=== PATIENT | male | born 1935 | race Caucasian/White ===

== ENCOUNTER 2018-02-02 22:18 | Emergency (ER) | payer MEDICARE, BC ==
[2018-02-02] MEDS ORDERED: Sodium Chloride 0.9% 10 ML Syringe FLUSH PRN ×2 (22:33→23:09)
[2018-02-02] MEDS ORDERED: Metoprolol Tartrate 5 MG/5 ML SDV IVPUSH ONE (22:33)
[2018-02-02] MEDS ORDERED: Aspirin 81 MG Tab.Chew CHEW ONE (22:33)
[2018-02-02] MEDS ORDERED: Ticagrelor 90 MG Tab PO ONE (22:33)
[2018-02-02] MEDS ORDERED: Famotidine 20 MG/2 ML SDV IVPUSH ONE (22:33)
--- NOTE | 2018-02-02 22:33 | EDM.PDOC ---
ED HPI GENERAL MEDICAL PROBLEM - General Chief Complaint: Chest Pain Stated Complaint: low BP clammy awoke chest tightness Time Seen by Provider: 02/02/18 22:20 Source of Information: Reports: Patient, Family (), Old Records ([facility] chart/EMR) History Limitations: Reports: No Limitations - History of Present Illness INITIAL COMMENTS - FREE TEXT/NARRATIVE: The patient was brought to the emergency room via private automobile by his for evaluation of 4/10 retrosternal chest pressure and tightness with symptoms starting while he was trying to fall asleep this evening at about 21: 00 hours. Symptoms were associated with some dizziness, heart flutter, diaphoresis and hypotension with a blood pressure of only 62/50 by their home blood pressure monitor. No medications were taken prior to arrival to our facility, including sublingual nitroglycerin, etc. The patient denies any orthopnea, diaphoresis, recent decreased exercise tolerance, or any other anginal-type symptoms, although patient is not very active secondary to his arthritis. No recent history of abdominal pain, heartburn, nausea, diarrhea, melena, gross hematochezia, or any food intolerance, including fatty foods, etc. with normal bowel movement earlier this morning. The patient also denies any recent fever, cough, wheezing, dyspnea, etc.. No history of recent headaches , visual changes, diplopia, change in mental status, or other change in neurological status. Last oral intake was at 19:30 hours this evening. He denies any medication noncompliance, recent fall or injury, recent surgery, etc.. Onset: Today, Gradual Onset Date: 02/02/18 Onset Time: 21:00 Duration: Constant Location: Reports: Chest. Denies: Head, Face, Neck, Abdomen, Back, Pelvis, Upper Extremity, Left, Upper Extremity, Right, Radiates to Quality: Reports: Pressure, Same as Previous Episode Severity: Mild Improves with: Reports: None Worsens with: Reports: None Context: Reports: Other (as above) Associated Symptoms: Reports: Chest Pain, Diaphoresis. 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5 mg PO QAM 12/01/13 [History] Multivitamin/Iron/Folic Acid [Multi-Day Plus Iron Tablet] 1 each PO QAM [History] Rosuvastatin [Crestor] 10 mg PO BEDTIME 12/01/13 [History] Carvedilol [Coreg] 12.5 mg PO BID 01/04/15 [History] Cholecalciferol (Vitamin D3) [Vitamin D3] 1,000 unit PO BEDTIME 01/04/15 [ History] Ferrous Sulfate 325 mg PO QAM 01/04/15 [History] Gabapentin [Neurontin] 100 mg PO QAM 09/13/17 [History] Gabapentin [Neurontin] 600 mg PO BEDTIME 09/13/17 [History] Past Medical History HEENT History: Reports: Cataract, Hard of Hearing, Impaired Vision, Other (See Below). Denies: Allergic Rhinitis, Glaucoma, Macular Degeneration, Retinal Detachment Other HEENT History: Patient wears glasses. 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 Cardiovascular History: Reports: Afib, Arrhythmia, CAD, Cardiomyopathy, Heart Murmur, High Cholesterol, Hypertension, MO, PTCA, PVD, Stents. Denies: Aneurysm , Blood Clots/VTE/DVT, Heart Failure, Pacemaker, Syncope Other Cardiovascular History: History of possible MO in 2016 with PTCA/stents as below. Mild cardiomyopathy and grade 1 diastolic dysfunction with decreased ejection fraction of 45-50% in 2014 by echocardiogram. Carotid occlusive disease requiring surgeries as below Respiratory History: Reports: COPD, Intubation, Previous, Pulmonary Fibrosis. Denies: Asthma, Intubation, Difficult, PE, Pneumothorax, Sleep Apnea, TB Gastrointestinal History: Reports: None. Denies: Bowel Obstruction, Celiac Disease, Cholelithiasis, Chronic Constipation, Chronic Diarrhea, Colon Polyp, Diverticulosis, Fecal Incontinence, Gastritis, GERD, GI Bleed, Hepatitis, Hiatal Hernia, Inflammatory Bowel Disease, Irritable Bowel Syndrome, Jaundice, Pancreatitis Genitourinary History: Reports: BPH. Denies: Acute Renal Failure, Chronic Renal Insuffiency, Renal Calculus, STD, Urinary Incontinence, UTI, Recurrent Musculoskeletal History: Reports: Arthritis, Back Pain, Chronic, Fibromyalgia, Neck Pain, Chronic, Osteoarthritis, Osteoporosis, RA, Other (See Below). Denies : Amputation, Fracture, Gout, SLE Other Musculoskeletal History: Lumbar stenosis, scoliosis, and degenerative joint disease. Bilateral coxarthrosis. Neurological History: Reports: Neuropathy, Peripheral. Denies: Cerebral Aneurysms, Concussion, CVA, Headaches, Chronic, Head Trauma, Migraines, MS, Neuropathy, Diabetic, Parkinson's, Seizure, TIA Psychiatric History: Reports: Addiction, Anxiety, Depression, Other (See Below) . Denies: Abuse, Victim of, ADD, ADHD, Psych Hospitalization(s), PTSD, Suicide Attempt, Suicidal Ideation Other Psychiatric History: alcohol and tobacco use as below Endocrine/Metabolic History: Reports: Osteopenia, Osteoporosis. Denies: Diabetes, Type I, Diabetes, Type II, Diabetes Mellitus, Type 3c, Hypothyroidism , IDDM, Multinodular Thyroid Hematologic History: Reports: Anemia, Iron Deficiency. Denies: B12 Deficiency, Blood Transfusion(s) Immunologic History: Reports: None. Denies: AIDS, HIV, SLE Oncologic (Cancer) History: Reports: None. Denies: Basal Cell Carcinoma, Cervix , Hodgkin's Lymphoma, Leukemia, Lymphoma, Malignant Melanoma, Non-Hodgkin's Lymphoma, Squamous Cell Carcinoma Dermatologic History: Reports: None. Denies: Eczema, Psoriasis - Infectious Disease History Infectious Disease History: Reports: None, Mumps. Denies: C-Difficile, Chicken Pox, Measles, Meningitis, Mononucleosis, MRSA, Pertussis (Whooping Cough), Rheumatic Fever, Rubella, Scarlet Fever, Shingles, TB, VRE - Past Surgical History Head Surgeries/Procedures: Reports: None HEENT Surgical History: Reports: Cataract Surgery, Oral Surgery, Other (See Below). Denies: Adenoidectomy, Eye Surgery, Laser Surgery, LASIK, Myringotomy w Tube(s), Naso-Sinus Surgery, Tonsillectomy Other HEENT Surgeries/Procedures: multiple teeth extractions with current complete upper dentures. Bilateral cataract surgery in 2016 Cardiovascular Surgical History: Reports: Carotid Endarterectomy, Coronary Artery Stent, Percutaneous Transluminal Angioplasty, Other (See Below). Denies : Coronary Artery Bypass, Pacer, Varicose Other Cardiovascular Surgeries/Procedures: left-sided carotid endarterectomy 2 in 2011 and 2012. PTCA/stent 2 in August 2016. Respiratory Surgical History: Reports: None. Denies: Thoracentesis GI Surgical History: Reports: Hernia, Inguinal, Other (See Below). Denies: Appendectomy, Cholecystectomy, Colonoscopy, EGD, Hernia, Abdominal, Hernia Repair/Other Other GI Surgeries/Procedures: right inguinal hernia repair in about 2007 Male Surgical History: Reports: Circumcision, Other (See Below). Denies: Vasectomy Other Male Surgeries/Procedures: circumcision as an Endocrine Surgical History: Reports: None. Denies: Thyroid Biopsy Neurological Surgical History: Reports: Discectomy, Lumbar Spine, Other (See Below). Denies: C-Spine, Laminectomy, Spinal Fusion, Vertebroplasty Other Neurological Surgeries/Procedures: discectomy and L3-L4 in about 2005 Musculoskeletal Surgical History: Reports: Joint Replacement, Other (See Below) . Denies: Arthroscopic Knee, Arthroscopic Procedure, Carpal Tunnel, Ganglion Cyst, ORIF, Shoulder Surgery Other Musculoskeletal Surgeries/Procedures:: right total knee arthroplasty at age 66. Oncologic Surgical History: Reports: None Dermatological Surgical History: Reports: None - Past Imaging History Past Imaging History: Reports: Angiography (August 2016), Cardiac Echo ( with ejection fraction of 45-50% and otherwise findings as above), MRI (last MRI of the lumbar spine on 08/19/17 with essentially yearly evaluations since November 22, 2010. MRI of the right hip on 08/12/17 with previous MRI of the hips bilaterally on 11/22/10) Social & Family History - Family History HEENT: Reports: None. Denies: Allergic Rhinitis, Glaucoma, Macular Degeneration , Retinal Detachment Cardiac: Reports: Bypass, CAD, MO, Other (See Below). Denies: Aneurysm, Arrhythmia, Blood Clots/VTE/DVT, High Cholesterol, Hypertension, PVD/COD, Syncope Other Cardiac Family History: father with fatal MO at age 69. Brother with fatal MO at about age 50. Another brother with MO at about age 50 with possible CABG and fatal MO at about age 65. Respiratory: Reports: None. Denies: Asthma, COPD, PE, Pneumothorax, Sleep Apnea GI: Reports: None. Denies: Celiac Disease, Cholelithiasis, Colon Polyps, GERD, GI bleed, Inflammatory Bowel Disease, Irritable Bowel Syndrome : Reports: None. Denies: Renal Calculus, Renal Disease/Insufficiency OBGYN: Reports: None. Denies: Endometriosis, Recurrent Spontaneous Musculoskeletal: Reports: None. Denies: Gout, RA, SLE Neurological: Reports: None. Denies: Alzheimers Disease, Cerebral Aneurysms, CVA, Dementia, Migraines, MS, Parkinson's, Seizure, TIA Psychiatric: Reports: None. Denies: Abuse, Victim of, ADD, ADHD, Anxiety, Depression, Psych Hospitalization(s), PTSD, Suicide Attempt Endocrine/Metabolic: Reports: Diabetes, type II, Other (See Below). Denies: Diabetes, Type I, Diabetes Mellitus, Type 3c, IDDM, Osteoporosis Other Endocrine/Metabolic Family History: Mother with AODM. Hematologic: Reports: None. Denies: Anemia Immunologic: Reports: None. Denies: AIDS, HIV, SLE Dermatologic: Reports: None. Denies: Eczema, Psoriasis Oncologic: Reports: None. Denies: Colon, Hodgkin's Lymphoma, Leukemia, Lymphoma , Non-Hodgkin's Lymphoma, Prostate, Skin - Tobacco Use Smoking Status *Q: Current Every Day Smoker Tobacco Use Within Last Twelve Months: Cigarettes Years of Tobacco use: 71 Packs/Tins Daily: 0.5 Packs/Tins Daily Comment: started smoking at age 11 with maximum use of one pack per day Used Tobacco, but Quit: No Smoking Cessation Information Provided To Patient: Yes Second Hand Smoke Exposure: No Second Hand Smoke Education Provided: No - Caffeine Use Caffeine Use: Reports: Coffee (4 cups per day), Soda (3 sodas per week). 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 ED EXAM, GENERAL - Physical Exam Exam: See Below Exam Limited By: No Limitations General Appearance: Alert, WD/WN, No Apparent Distress Eye Exam: Bilateral Eye: EOMI, Normal Inspection (no nystagmus. Moderate bilateral arcus senilis. Patient wearing glasses), PERRL Ears: Normal External Exam, Normal Canal (moderate cerumen in the bases bilaterally), Normal TMs, Hearing Loss (mild bilateral presbycusis). No: Hearing Grossly Normal Nose: Normal Inspection, Normal Mucosa, No Blood Throat/Mouth: Normal Inspection, Normal Lips, Normal Gums, Normal Oropharynx, Normal Voice, No Airway Compromise. No: Normal Teeth (multiple missing teeth with the patient not wearing his upper dentures today), Dysphagia, Inflammation , Perioral Cyanosis Head: Atraumatic, Normocephalic. No: Facial Swelling, Facial Tenderness, Sinus Tenderness Neck: Supple, Non-Tender, Full Range of Motion, Carotid Bruit (mild bilateral carotid bruits). No: Lymphadenopathy (L), Lymphadenopathy (R), Thyromegaly Respiratory/Chest: No Respiratory Distress, No Accessory Muscle Use, Chest Non- Tender, Rales (mild bilateral basilar rales). No: Rhonchi, Wheezing, Pleural Rub, Retractions Cardiovascular: Normal Peripheral Pulses, No Edema, No Gallop, No JVD, No Murmur , No Rub, Tachycardia (initial tachycardia on arrival), Extra Beats (frequent) Peripheral Pulses: 2+: Radial (L), Radial (R), Dorsalis Pedis (L), Dorsalis Pedis (R) GI/Abdominal: Normal Bowel Sounds, Soft, Non-Tender, No Organomegaly, No Distention, No Abnormal Bruit, No Mass, Pelvis Stable. No: Guarding (Male) Exam: Deferred Rectal (Males) Exam: Deferred Back Exam: Normal Inspection, Full Range of Motion, Other (mild scoliosis). No : CVA Tenderness (L), CVA Tenderness (R), Muscle Spasm Extremities: Normal Inspection, Normal Range of Motion, Non-Tender, No Pedal Edema, Normal Capillary Refill. No: Mary's Sign Neurological: Alert, Oriented, CN II-XII Intact, Normal Cognition, Normal Gait, Normal Reflexes (negative Babinski's), No Motor/Sensory Deficits Psychiatric: Normal Affect, Normal Mood Skin Exam: Warm, Dry, Intact, Normal Color, No Rash. No: Diaphoretic, Ecchymosis, Wound/Incision Lymphatic: No Adenopathy EKG INTERPRETATION EKG Date: 02/02/18 Time: 22:37 Rhythm: NSR (with frequent PVCs) Rate (Beats/Min): 85 Grayson: LAD-Left Grayson Deviation (stented left cardiac axis) P-Wave: Present (mild diffuse biphasic P waves with extreme poor R-wave progression in the anterior leads) QRS: RBBB (QRS interval of 0.12 seconds representing a complete right bundle branch block with T-wave inversion in lead aVL and V1) ST-T: Other (as above) QT: Normal IN/PQ Interval: 0.21 seconds representing a first degree AV block Comparison: NA - No Prior EKG EKG Interpretation Comments: 1. No acute ischemic changes 2. 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 First-degree AV block 4. PVCs Course - Vital Signs Last Recorded V/S: Last Vital Signs Temp 36.8 C 02/02/18 22:18 Pulse 78 02/02/18 23:00 Resp 14 02/02/18 23:00 BP 149/70 H 02/02/18 23:00 Pulse Ox 100 02/02/18 23:00 - Orders/Labs/Meds Orders: Active Orders 24 hr Category Date Time Status Cardiac Monitoring [RC] . DIRECTED Care 02/02/18 22:33 Active EKG Documentation Completion [RC] ASDIRECTED Care 02/02/18 22:33 Active Oxygen Therapy, ED [RC] CONTINUOUS Care 02/02/18 22:33 Active Peripheral IV Care [RC] . DIRECTED Care 02/02/18 22:33 Active Peripheral IV Care [RC] . DIRECTED Care 02/02/18 23:09 Ordered Pulse Oximetry [RC] CONTINUOUS Care 02/02/18 22:33 Active Up With Assistance [RC] PFP Care 02/02/18 22:33 Active Vital Signs [RC] PFP Care 02/02/18 22:33 Active Nothing per Oral Now Diet [DIET] Diet 02/02/18 Breakfast Active Chest 1V Frontal [CR] Stat Exams 02/02/18 22:33 Taken Heparin Sodium/D5W [Heparin 25,000 Units in D5W 500 ML] Med 02/02/18 23:15 Ordered 25,000 units in 500 ml IV TITRATE Morphine Med 02/02/18 23:10 Once 1 mg IVPUSH ONETIME ONE Sodium Chloride 0.9% @ 50 MLS/HR(1000ml) Med 02/02/18 23:45 Ordered Sodium Chloride 0.9% [Normal Saline] 1,000 ml IV ASDIRECTED Sodium Chloride 0.9% [Saline Flush] Med 02/02/18 22:33 Active 10 ml FLUSH ASDIRECTED PRN Sodium Chloride 0.9% [Saline Flush] Med 02/02/18 23:09 Ordered 10 ml FLUSH ASDIRECTED PRN Obtain Past Medical Record [OM.PC] Urgent Oth 02/02/18 22:33 Active Peripheral IV Insertion Adult [OM.PC] Stat Oth 02/02/18 22:33 Ordered Peripheral IV Insertion Adult [OM.PC] Stat Oth 02/02/18 23:09 Ordered Resuscitation Status Stat Resus Stat 02/02/18 22:33 Ordered Medication Orders Heparin Sodium/Dextrose (Heparin 25,000 Units In D5w 500 Ml) 25,000 units in 500 mls @ 17.124 mls/hr IV TITRATE JAMEY; Protocol Last Admin: 02/02/18 23:29 Dose: 12 units/kg/hr, 17.124 mls/hr Sodium Chloride (Normal Saline) 1,000 mls @ 50 mls/hr IV ASDIRECTED JAMEY Last Admin: 02/02/18 23:41 Dose: 50 mls/hr Morphine Sulfate (Morphine) 1 mg IVPUSH ONETIME ONE Stop: 02/03/18 23:11 Last Admin: 02/02/18 23:16 Dose: 1 mg Sodium Chloride (Saline Flush) 10 ml FLUSH ASDIRECTED PRN PRN Reason: Keep Vein Open Sodium Chloride (Saline Flush) 10 ml FLUSH ASDIRECTED PRN PRN Reason: Keep Vein Open Labs: Laboratory Tests 02/02/18 02/02/18 02/02/18 Range/Units 22:30 22:30 22:30 WBC 6.4 (4.0-10.2) K/uL RBC 3.68 L (4.33-5.41) M/uL Hgb 12.2 L (13.1-16.8) g/dL Hct 35.0 L (39.0-49.0) % MCV 95.1 (84.0-98.0) fL MCH 33.2 (28.2-33.3) pg MCHC 34.9 (31.7-36.0) g/dL RDW 13.0 (11.2-14.1) % Plt Count 134 L (150-350) K/uL Neut % (Auto) 51.5 (45.0-80.0) % Lymph % (Auto) 29.3 (10.0-50.0) % [place] % (Auto) 14.9 H (2.0-14.0) % Eos % (Auto) 3.7 (0.0-5.0) % Baso % (Auto) 0.6 (0.0-2.0) % Neut # (Auto) 3.31 (1.40-7.00) K/uL Lymph # (Auto) 1.89 (0.50-3.50) K/uL [place] # (Auto) 0.96 (0.00-1.00) K/uL Eos # (Auto) 0.24 (0.00-0.50) K/uL Baso # (Auto) 0.04 (0.00-0.20) K/uL PT 11.5 (9.8-11.7) SEC INR 1.1 APTT 27.8 (22.1-29.8) SEC D-Dimer, Quantitative 1050 H (0-400) ng/mL Sodium (136-145) mmol/L Potassium (3.5-5.1) mmol/L Chloride (98-107) mmol/L Carbon Dioxide (21.0-32.0) mmol/L BUN (7-18) mg/dL Creatinine (0.51-1.17) mg/dL Est Cr Clr Drug Dosing Estimated GFR (MDRD) mL/min Glucose (74-106) mg/dL Lactic Acid (0.4-2.0) mmol/L Uric Acid (2.6-7.2) mg/dL Calcium (8.5-10.1) mg/dL Magnesium (1.8-2.4) mg/dL Total Bilirubin (0.2-1.0) mg/dL AST (15-37) U/L ALT (12-78) U/L Alkaline Phosphatase (46-116) IU/L Creatine Kinase (26-308) U/L Creatine Kinase Index (0.0-2.5) % CK-MB (CK-2) (0.00-3.60) ng/mL Troponin I (0.000-0.056) ng/mL NT-Pro-B Natriuret Pep (0-125) pg/mL Total Protein (6.4-8.2) g/dL Albumin (3.4-5.0) g/dL TSH, Ultra Sensitive (0.358-3.740) mIU/mL 02/02/18 02/02/18 Range/Units 22:30 22:30 WBC (4.0-10.2) K/uL RBC (4.33-5.41) M/uL Hgb (13.1-16.8) g/dL Hct (39.0-49.0) % MCV (84.0-98.0) fL MCH (28.2-33.3) pg MCHC (31.7-36.0) g/dL RDW (11.2-14.1) % Plt Count (150-350) K/uL Neut % (Auto) (45.0-80.0) % Lymph % (Auto) (10.0-50.0) % [place] % (Auto) (2.0-14.0) % Eos % (Auto) (0.0-5.0) % Baso % (Auto) (0.0-2.0) % Neut # (Auto) (1.40-7.00) K/uL Lymph # (Auto) (0.50-3.50) K/uL [place] # (Auto) (0.00-1.00) K/uL Eos # (Auto) (0.00-0.50) K/uL Baso # (Auto) (0.00-0.20) K/uL PT (9.8-11.7) SEC INR APTT (22.1-29.8) SEC D-Dimer, Quantitative (0-400) ng/mL Sodium 134 L (136-145) mmol/L Potassium 4.0 (3.5-5.1) mmol/L Chloride 98 (98-107) mmol/L Carbon Dioxide 25.1 (21.0-32.0) mmol/L BUN 19 H (7-18) mg/dL Creatinine 1.15 (0.51-1.17) mg/dL Est Cr Clr Drug Dosing TNP Estimated GFR (MDRD) > 60 mL/min Glucose 85 (74-106) mg/dL Lactic Acid 1.8 (0.4-2.0) mmol/L Uric Acid 4.8 (2.6-7.2) mg/dL Calcium 9.0 (8.5-10.1) mg/dL Magnesium 1.9 (1.8-2.4) mg/dL Total Bilirubin 0.4 (0.2-1.0) mg/dL AST 30 (15-37) U/L ALT 27 (12-78) U/L Alkaline Phosphatase 49 (46-116) IU/L Creatine Kinase 350 H (26-308) U/L Creatine Kinase Index 2.4 (0.0-2.5) % CK-MB (CK-2) 8.30 H* (0.00-3.60) ng/mL Troponin I 0.048 (0.000-0.056) ng/mL NT-Pro-B Natriuret Pep 1616 H (0-125) pg/mL Total Protein 7.3 (6.4-8.2) g/dL Albumin 3.7 (3.4-5.0) g/dL TSH, Ultra Sensitive 1.646 (0.358-3.740) mIU/mL Meds: Medications Generic Name Dose Route Start Last Admin Trade Name Freq PRN Reason Stop Dose Admin Heparin Sodium/Dextrose 25,000 units in 500 mls @ 17.124 mls/hr 02/02/18 23: 15 02/02/18 23:29 Heparin 25,000 Units In D5w 500 Ml IV 12 units/kg/hr TITRATE JAMEY 17.124 mls/hr Administration Protocol 12 UNITS/KG/HR Sodium Chloride 1,000 mls @ 50 mls/hr 04/29/18 23:45 02/02/18 23:41 Normal Saline IV 50 mls/hr ASDIRECTED JAMEY Administration Morphine Sulfate 1 mg 02/02/18 23:10 02/02/18 23:16 Morphine IVPUSH 02/03/18 23:11 1 mg ONETIME ONE Administration Sodium Chloride 10 ml 02/02/18 22:33 Saline Flush FLUSH ASDIRECTED PRN Keep Vein Open Sodium Chloride 10 ml 02/02/18 23:09 Saline Flush FLUSH ASDIRECTED PRN Keep Vein Open Discontinued Medications Generic Name Dose Route Start Last Admin Trade Name Freq PRN Reason Stop Dose Admin Aspirin 324 mg 02/02/18 22:33 02/02/18 22:40 Aspirin CHEW 02/02/18 22:34 324 mg ONETIME ONE Administration Famotidine 40 mg 02/02/18 22:33 02/02/18 22:42 Pepcid IVPUSH 02/02/18 22:34 40 mg ONETIME ONE Administration Furosemide 40 mg 02/02/18 23:18 02/02/18 23:26 Lasix IVPUSH 02/02/18 23:19 40 mg NOW ONE Administration Heparin Sodium (Porcine) 4,000 units 02/02/18 23:09 02/02/18 23:17 Heparin Sodium IVPUSH 02/02/18 23:10 4,000 units ONETIME ONE Administration Metoprolol Tartrate 2.5 mg 02/02/18 22:33 02/02/18 22:42 Lopressor IVPUSH 02/02/18 22:34 2.5 mg ONETIME ONE Administration Ondansetron HCl 4 mg 02/02/18 23:09 02/02/18 23:16 Zofran IVPUSH 02/02/18 23:10 4 mg ONETIME ONE Administration Ticagrelor 180 mg 02/02/18 22:33 02/02/18 22:40 Brilinta PO 02/02/18 22:34 180 mg ONETIME ONE Administration - Radiology Interpretation Free Text/Narrative:: lunchroom monitor initially showed atrial fibrillation with rapid ventricular response with heart rate in the 130s-140s with subsequent normal sinus rhythm with exception of frequent PVCs with average heart rate in the 70s to 80s prior to transfer. Chest x-ray, portable, shows evidence of moderate COPD and pulmonary fibrotic changes with mild centralized CHF, mild prominence of the proximal aortic arch, and mild aortic valve calcification. No Pulmonary infiltrates, pneumothorax, etc. Departure - Departure Time of Disposition: 00:40 Disposition: DC/Tfer to Acute Hospital 02 Reason for Transfer *Q: Other (cardiology consultation for catheterization) Condition: Fair Clinical Impression: Tobacco abuse counseling, D-dimer, elevated, Atrial fibrillation Acute myocardial infarction Qualifiers: Myocardial infarction type: non-ST elevation myocardial infarction Qualified Code(s): I21.4 - Non-ST elevation (NSTEMI) myocardial infarction Coronary artery disease Qualifiers: Coronary Disease-Associated Artery/Lesion type: [place] artery [place] vs. transplanted heart: [place] heart Associated angina: with unstable angina Qualified Code(s): I25.110 - Atherosclerotic heart disease of [place] coronary artery with unstable angina pectoris Hypertension Qualifiers: Hypertension type: essential hypertension Qualified Code(s): I10 - Essential ( primary) hypertension Hyperlipidemia Qualifiers: Hyperlipidemia type: unspecified Qualified Code(s): E78.5 - Hyperlipidemia, unspecified COPD (chronic obstructive pulmonary disease) Qualifiers: COPD type: emphysema Emphysema type: panlobular Qualified Code(s): J43.1 - Panlobular emphysema Rheumatoid arthritis Qualifiers: Rheumatoid arthritis location: multiple sites Rheumatoid factor presence: unspecified presence Qualified Code(s): M06.9 - Rheumatoid arthritis, unspecified CHF (congestive heart failure) Qualifiers: Heart failure type: unspecified Heart failure chronicity: acute Qualified Code( s): I50.9 - Heart failure, unspecified Referrals: Sheets-Sherrill Sanchez MD [Primary Care Provider] - Forms: ED Department Discharge, Interfacility Transfer EMTALA - Problem List & Annotations (1) Acute myocardial infarction SNOMED Code(s): 15030656 Code(s): I21.9 - ACUTE MYOCARDIAL INFARCTION, UNSPECIFIED Status: Acute Priority: High Onset Date: 02/02/18 Annotation/Comment:: Threatening acute MO with positive cardiac enzymes, however no EKG changes. Chest pain protocol was initiated immediately upon patient's arrival to the emergency room. Telephone consultation at any 23:[address] Jin, hospitalist at [facility], who does accept the patient for direct admission, with no further treatment recommendations given. Note some delay inpatient transport secondary to ambulance availability without sequelae. No significant chest pain at time of transfer. Note that patient's pain clinic instructed him to stop his Plavix one week ago with patient also stopping his Plavix one month ago for 1 week per their instructions? Qualifiers: Myocardial infarction type: non-ST elevation myocardial infarction Qualified Code(s): I21.4 - Non-ST elevation (NSTEMI) myocardial infarction (2) Coronary artery disease SNOMED Code(s): 14651440 Code(s): I25.10 - ATHSCL HEART DISEASE OF [place] CORONARY ARTERY W/O ANG PCTRS Status: Chronic Priority: Medium Annotation/Comment:: as above. Known history of heart disease with previous PTCA and stent as above. Qualifiers: Coronary Disease-Associated Artery/Lesion type: [place] artery [place] vs. transplanted heart: [place] heart Associated angina: with unstable angina Qualified Code(s): I25.110 - Atherosclerotic heart disease of [place] coronary artery with unstable angina pectoris (3) CHF (congestive heart failure) SNOMED Code(s): 30701334 Code(s): I50.9 - HEART FAILURE, UNSPECIFIED Status: Acute Priority: High Onset Date: 02/03/18 Annotation/Comment:: History of grade 1 diastolic dysfunction, however no known previous CHF. IV Lasix given in the emergency room. Cardiology consultation with probable heart catheterization and possible additional echocardiogram. Qualifiers: Heart failure type: unspecified Heart failure chronicity: acute Qualified Code(s): I50.9 - Heart failure, unspecified (4) Atrial fibrillation SNOMED Code(s): 69700346 Code(s): I48.91 - UNSPECIFIED ATRIAL FIBRILLATION Status: Acute Priority : High Onset Date: 02/03/18 Annotation/Comment:: Newly diagnosed atrial fibrillation with rapid ventricular response today with spontaneous resolution prior to medical treatment as above. Note previously known history of PVCs however significantly increased arrhythmia today. In addition, note complete right bundle branch block/bifascicular bundle-branch block and first-degree AV block prior to administration of low-dose Lopressor. Qualifiers: Atrial fibrillation type: paroxysmal Qualified Code(s): I48.0 - Paroxysmal atrial fibrillation (5) Hypertension SNOMED Code(s): 26272334 Code(s): I10 - ESSENTIAL (PRIMARY) HYPERTENSION Status: Chronic Priority : High Annotation/Comment:: Note significant hypotension prior to arrival and also at time of arrival to our facility likely secondary to his tachycardia and MO. Blood pressure significantly improved with treatment as above with vital signs stable at time of transfer. Qualifiers: Hypertension type: essential hypertension Qualified Code(s): I10 - Essential (primary) hypertension (6) COPD (chronic obstructive pulmonary disease) SNOMED Code(s): 93604711 Code(s): J44.9 - CHRONIC OBSTRUCTIVE PULMONARY DISEASE, UNSPECIFIED Status : Chronic Priority: Medium Annotation/Comment:: Additional history of pulmonary fibrosis with no recent fever, bronchitic type symptoms, etc. Qualifiers: COPD type: emphysema Emphysema type: panlobular Qualified Code(s): J43.1 - Panlobular emphysema (7) D-dimer, elevated SNOMED Code(s): 672683508 Code(s): R79.89 - OTHER SPECIFIED ABNORMAL FINDINGS OF BLOOD CHEMISTRY Status: Acute Priority: High Onset Date: 02/03/18 Annotation/Comment:: D- dimer elevation likely secondary to acute MO with no clinical evidence of DVT or PE. Consider CTA of the chest, venous Doppler studies of the lower extremities, etc. depending on his clinical course (8) Hyperlipidemia SNOMED Code(s): 45980575 Code(s): E78.5 - HYPERLIPIDEMIA, UNSPECIFIED Status: Chronic Priority: Medium Annotation/Comment:: Currently under therapy with the patient taking his Crestor today Qualifiers: Hyperlipidemia type: unspecified Qualified Code(s): E78.5 - Hyperlipidemia , unspecified (9) Rheumatoid arthritis SNOMED Code(s): 40371648 Code(s): M06.9 - RHEUMATOID ARTHRITIS, UNSPECIFIED Status: Chronic Priority: Medium Annotation/Comment:: Currently being managed by the pain clinic [facility] [place] Qualifiers: Rheumatoid arthritis location: multiple sites Rheumatoid factor presence: unspecified presence Qualified Code(s): M06.9 - Rheumatoid arthritis, unspecified (10) Tobacco abuse counseling SNOMED Code(s): 634024920, 075006492, 025064872 Code(s): Z71.6 - TOBACCO ABUSE COUNSELING Status: Chronic Priority: Medium Annotation/Comment:: Tobacco cessation strongly encouraged with tobacco cessation information provided to the patient's prior to transfer - Problem List Review Problem List Initiated/Reviewed/Updated: Yes - My Orders Last 24 Hours: My Active Orders 04/29/18 22:33 Cardiac Monitoring [RC] . DIRECTED EKG Documentation Completion [RC] ASDIRECTED Oxygen Therapy, ED [RC] CONTINUOUS Peripheral IV Care [RC] . DIRECTED Pulse Oximetry [RC] CONTINUOUS Up With Assistance [RC] PFP Vital Signs [RC] PFP Chest 1V Frontal [CR] Stat Sodium Chloride 0.9% [Saline Flush] 10 ml FLUSH ASDIRECTED PRN Obtain Past Medical Record [OM.PC] Urgent Peripheral IV Insertion Adult [OM.PC] Stat Resuscitation Status Stat 02/02/18 23:09 Peripheral IV Care [RC] . DIRECTED Sodium Chloride 0.9% [Saline Flush] 10 ml FLUSH ASDIRECTED PRN Peripheral IV Insertion Adult [OM.PC] Stat 02/02/18 23:10 Morphine 1 mg IVPUSH ONETIME ONE 02/02/18 23:15 Heparin Sodium/D5W [Heparin 25,000 Units in D5W 500 ML] 25,000 units in 500 ml IV TITRATE 02/02/18 23:45 Sodium Chloride 0.9% @ 50 MLS/HR(1000ml) Sodium Chloride 0.9% [Normal Saline] 1 ,000 ml IV ASDIRECTED 02/02/18 Breakfast Nothing per Oral Now Diet [DIET] - Assessment/Plan Last 24 Hours: My Active Orders 02/02/18 22:33 Cardiac Monitoring [RC] . DIRECTED EKG Documentation Completion [RC] ASDIRECTED Oxygen Therapy, ED [RC] CONTINUOUS Peripheral IV Care [RC] . DIRECTED Pulse Oximetry [RC] CONTINUOUS Up With Assistance [RC] PFP Vital Signs [RC] PFP Chest 1V Frontal [CR] Stat Sodium Chloride 0.9% [Saline Flush] 10 ml FLUSH ASDIRECTED PRN Obtain Past Medical Record [OM.PC] Urgent Peripheral IV Insertion Adult [OM.PC] Stat Resuscitation Status Stat 02/02/18 23:09 Peripheral IV Care [RC] . DIRECTED Sodium Chloride 0.9% [Saline Flush] 10 ml FLUSH ASDIRECTED PRN Peripheral IV Insertion Adult [OM.PC] Stat 02/02/18 23:10 Morphine 1 mg IVPUSH ONETIME ONE 02/02/18 23:15 Heparin Sodium/D5W [Heparin 25,000 Units in D5W 500 ML] 25,000 units in 500 ml IV TITRATE 02/02/18 23:45 Sodium Chloride 0.9% @ 50 MLS/HR(1000ml) Sodium Chloride 0.9% [Normal Saline] 1 ,000 ml IV ASDIRECTED 02/02/18 Breakfast Nothing per Oral Now Diet [DIET] Assessment:: as above Plan: as above. Extensive precautions were given to the patient and his , who are in agreement with the treatment plan. 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
[2018-02-02 23:08] LABS: CHLORIDE,CL 98 mmol/L (98-107); SODIUM,NA 134 mmol/L (136-145)
[2018-02-02] MEDS ORDERED: Heparin Sodium 5,000 Units/ML Vial IVPUSH ONE (23:09)
[2018-02-02] MEDS ORDERED: Ondansetron 4 MG/2 ML SDV IVPUSH ONE (23:09)
[2018-02-02] MEDS ORDERED: Morphine 10 MG/ML Syringe IVPUSH ONE (23:10)
[2018-02-02] MEDS ORDERED: Heparin Sodium/D5W 25,000 UNITS/500 ML BAG IV SCH (23:15)
[2018-02-02] MEDS ORDERED: Furosemide 40 MG/4 ML VIAL IVPUSH ONE (23:18)
[2018-02-02] MEDS ORDERED: Sodium Chloride 0.9% 1,000 ML IV SCH (23:45)
[2018-02-03 00:03] VITALS: BP 134/80
== END 2018-02-03 00:40 ==
LOC: LL.ED 22:18
DX: I21.4 Non-ST elevation (NSTEMI) myocardial infarction (principal); I48.91 Unspecified atrial fibrillation; J44.9 Chronic obstructive pulmonary disease, unspecified; F17.210 Nicotine dependence, cigarettes, uncomplicated; I11.0 Hypertensive heart disease with heart failure; I50.9 Heart failure, unspecified; Z71.6 Tobacco abuse counseling; I25.110 Atherosclerotic heart disease of native coronary artery with unstable angina pectoris; E78.5 Hyperlipidemia, unspecified; M06.9 Rheumatoid arthritis, unspecified; R79.1 Abnormal coagulation profile; I25.2 Old myocardial infarction; Z88.5 Allergy status to narcotic agent; Z79.899 Other long term (current) drug therapy; Z79.82 Long term (current) use of aspirin; Z95.0 Presence of cardiac pacemaker; Z95.5 Presence of coronary angioplasty implant and graft
CPT/HCPCS: 36000; 36415; 71045; 80053; 82550; 82553; 83605; 83735; 83880; 84443; 84484; 84550; 85025; 85379; 85610; 85730; 93005; 93010; 96365; 96375; 96376; 99285; A9270-GY; J1644; J1940; J2270; J2405; J3490; J7030; S0028

== ENCOUNTER → 2019-08-25 | Outpatient (CLI) | payer MEDICARE, BC | LOC: LL.US 09:19 | PROVIDERS: ATTEND Internal Medicine Cardiovascular Disease | DX: I42.9 Cardiomyopathy, unspecified (principal); I34.0 Nonrheumatic mitral (valve) insufficiency; I51.7 Cardiomegaly | CPT/HCPCS: 93306 ==

== ENCOUNTER 2021-08-18 19:08 | Emergency (ER) | payer MEDICARE, OTHER ==
[2021-08-18] MEDS ORDERED: Diltiazem 25 MG/5 ML SDV ONE (19:13)
[2021-08-18] MEDS ORDERED: Adenosine 6 MG/2 ML SDV IVPUSH ONE (19:14)
[2021-08-18] MEDS ORDERED: Diltiazem 25 MG/5 ML SDV IVPUSH ONE (19:14)
[2021-08-18] MEDS ORDERED: Sodium Chloride 0.9% 1,000 ML IV SCH (19:15)
[2021-08-18] MEDS: Sodium Chloride 0.9% 10 ML Syringe FLUSH PRN ×2 (19:23→19:24)
[2021-08-18] MEDS ORDERED: Sodium Chloride 0.9% 1,000 ML IV ONE (19:24)
[2021-08-18] MEDS ORDERED: Diltiazem 125 MG in Sodium Chloride 0.9% 100 ML IV SCH (19:45)
[2021-08-18 19:48] LABS: ANION GAP 10.7 meq/L (7-15); CHLORIDE,CL 104 mmol/L (98-107); SODIUM,NA 140 mmol/L (136-145)
--- NOTE | 2021-08-18 19:51 | EDM.PDOC ---
ED HPI GENERAL MEDICAL PROBLEM - General Chief Complaint: Chest Pain Stated Complaint: defib shock at home Time Seen by Provider: 08/18/21 19:08 Source of Information: Reports: Patient, EMS, Family, Old Records History Limitations: Reports: No Limitations - History of Present Illness INITIAL COMMENTS - FREE TEXT/NARRATIVE: Patient is 10 days post op AICD and removal of loop recorder. He states his medication did not change after surgery but the only medication he knows is coreg. Been on this for some time. he has been doing well post op and today actually went to the 's home and dealt blackjack. AT home later, he was sitting with his having supper and he experienced three shocks from his defibrillator. He did not lose consciousness, has been feeling fine. He came to the ED by EMS as he was told to call 911 if he was shocked more than once. No interventions with EMS> Patient denies feeling unwell. has been taking his medications. Not on a blood thinner. Onset: Today, Sudden Duration: Minutes: Location: Reports: Chest - Related Data Allergies Allergy/AdvReac Type Severity Reaction Status Date / Time hydrocodone bitartrate Allergy Confusion Verified 08/18/21 19:15 [From Lortab] Home Meds: Home Meds Tamsulosin [Tamsulosin 24 Hr] 0.4 mg PO BID 10/06/13 [History] InFLIXimab [Remicade] 300 mg IV Q60D 12/01/13 [History] Leflunomide [Arava] 5 mg PO BEDTIME 12/01/13 [History] Multivitamin/Iron/Folic Acid [Multi-Day Plus Iron Tablet] 1 each PO QAM 12/01/13 [History] Rosuvastatin [Crestor] 10 mg PO BEDTIME 12/01/13 [History] lisinopriL [Prinivil] 2.5 mg PO QAM 12/01/13 [History] Cholecalciferol (Vitamin D3) [Vitamin D3] 1,000 unit PO BEDTIME 01/04/15 [History] Ferrous Sulfate 325 mg PO QAM 01/04/15 [History] carvediloL [Coreg] 12.5 mg PO BID 01/04/15 [History] Nitroglycerin [Nitrostat] 0.4 mg SL Q5M PRN 02/03/18 [History] Gabapentin [Neurontin] 300 mg PO BID 10/07/19 [History] Aspirin [Halfprin] 81 mg PO DAILY 04/02/20 [History] Past Medical History HEENT History: Reports: Impaired Vision Other HEENT History: Patient wears glasses. 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 Cardiovascular History: Reports: Afib, Arrhythmia, CAD, Cardiomyopathy, Heart Murmur, High Cholesterol, Hypertension, NE, PTCA, PVD, Stents Other Cardiovascular History: History of possible NE in 2016 with PTCA/stents as below. Mild cardiomyopathy and grade 1 diastolic dysfunction with decreased ejection fraction of 45-50% in 2013 by echocardiogram. Carotid occlusive disease requiring surgeries as below Respiratory History: Reports: COPD, Intubation, Previous, Pulmonary Fibrosis Gastrointestinal History: Reports: None Genitourinary History: Reports: BPH Musculoskeletal History: Reports: Arthritis, Fibromyalgia, Osteoarthritis, RA, Other (See Below) Other Musculoskeletal History: Lumbar stenosis Neurological History: Reports: None Psychiatric History: Reports: None Other Psychiatric History: alcohol and tobacco use as below Endocrine/Metabolic History: Reports: Osteopenia, Osteoporosis Hematologic History: Reports: Anemia, Iron Deficiency Immunologic History: Reports: None Oncologic (Cancer) History: Reports: None Dermatologic History: Reports: None - Infectious Disease History Infectious Disease History: Reports: None, Mumps. Denies: C-Difficile, Chicken Pox, Measles, Meningitis, Mononucleosis, MRSA, Pertussis (Whooping Cough), Rheumatic Fever, Rubella, Scarlet Fever, Shingles, TB, VRE - Past Surgical History Head Surgeries/Procedures: Reports: None Cardiovascular Surgical History: Reports: Carotid Endarterectomy, Coronary Artery Stent, Percutaneous Transluminal Angioplasty, Other (See Below) (AICD 08/2021) Other Cardiovascular Surgeries/Procedures: left-sided carotid endarterectomy 2 in 2011 and 2012. PTCA/stent 2 in August 2016. Respiratory Surgical History: Reports: None GI Surgical History: Reports: Hernia, Inguinal, Other (See Below) Other GI Surgeries/Procedures: right inguinal hernia repair in about 2007 Male Surgical History: Reports: Circumcision, Other (See Below) Other Male Surgeries/Procedures: circumcision as an infant Endocrine Surgical History: Reports: None Oncologic Surgical History: Reports: None Dermatological Surgical History: Reports: None - Past Imaging History Past Imaging History: Reports: Angiography (August 2016), Cardiac Echo (01/01/14 with ejection fraction of 45-50% and otherwise findings as above), MRI (last MRI of the lumbar spine on 08/19/17 with essentially yearly evaluations since November 22, 2010. MRI of the right hip on 08/12/17 with previous MRI of the hips bilaterally on 11/22/10) Social & Family History - Family History HEENT: Reports: None Cardiac: Reports: Bypass, CAD, NE, Other (See Below) Other Cardiac Family History: father with fatal NE at age 69. Brother with fatal NE at about age 50. Another brother with NE at about age 50 with possible CABG and fatal NE at about age 65. Respiratory: Reports: None GI: Reports: None : Reports: None OBGYN: Reports: None Musculoskeletal: Reports: None Neurological: Reports: None Psychiatric: Reports: None Endocrine/Metabolic: Reports: Diabetes, type II, Other (See Below) Other Endocrine/Metabolic Family History: Mother with AODM. 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 Denies: Fever, Malaise, Weakness HEENT: Reports: No Symptoms Respiratory: Reports: No Symptoms. Denies: Shortness of Breath Cardiovascular: Reports: No Symptoms. Denies: Chest Pain, Dyspnea on Exertion Endocrine: Reports: No Symptoms GI/Abdominal: Reports: No Symptoms. Denies: Abdominal Pain, Diarrhea, Melena, Nausea : Reports: No Symptoms Musculoskeletal: Reports: No Symptoms. Denies: Shoulder Pain Skin: Reports: No Symptoms Neurological: Reports: No Symptoms Psychiatric: Reports: No Symptoms ED EXAM, GENERAL - Physical Exam Exam: See Below Exam Limited By: No Limitations General Appearance: Alert, WD/WN, No Apparent Distress Eye Exam: Bilateral Eye: EOMI, Normal Inspection, PERRL Ears: Normal External Exam Nose: Normal Inspection, Normal Mucosa Throat/Mouth: Normal Inspection, Normal Lips, Normal Voice, No Airway Compromise Head: Atraumatic Neck: Normal Inspection Respiratory/Chest: No Respiratory Distress, Lungs Clear, Normal Breath Sounds, No Accessory Muscle Use, Chest Non-Tender Cardiovascular: Tachycardia, Other (a fib with rvr, rate of 150, pacer pocket flat, healing well, no signs of infection) #1 Interpretation EKG Date: 08/18/21 Time: 19:04 Rhythm: A-Fib Rate (Beats/Min): 155 ST-T: Other (elevation consistent with fast rate) Comparison: Change From Previous EKG Course - Orders/Labs/Meds Orders: Active Orders 24 hr Category Date Time Status EKG Documentation Completion [RC] ASDIRECTED Care 08/18/21 19:15 Active Peripheral IV Care [RC] . DIRECTED Care 08/18/21 19:14 Active Chest 1V Frontal [CR] Stat Exams 08/18/21 19:14 Taken PE Chest [Ang Chest] [CT] Stat Exams 08/18/21 19:45 Stop Req Diltiazem 125 mg Med 08/18/21 19:45 Active Sodium Chloride 0.9% [Normal Saline AdvBag] 100 ml IV TITRATE Sodium Chloride 0.9% [Normal Saline] 1,000 ml Med 08/18/21 19:24 Active IV .BOLUS Sodium Chloride 0.9% [Normal Saline] 1,000 ml Med 08/18/21 19:15 Active IV ASDIRECTED Sodium Chloride 0.9% [Saline Flush] Med 08/18/21 19:14 Active 10 ml FLUSH ASDIRECTED PRN Peripheral IV Insertion Adult [OM.PC] Routine Oth 08/18/21 19:14 Ordered Medication Orders Sodium Chloride (Normal Saline) 1,000 mls @ 75 mls/hr IV ASDIRECTED JAMEY Last Admin: 08/18/21 20:02 Dose: 75 mls/hr Documented by: Sodium Chloride (Normal Saline) 1,000 mls @ 999 mls/hr IV .BOLUS ONE Stop: 08/18/21 20:24 Last Admin: 08/18/21 19:12 Dose: 999 mls/hr Documented by: Diltiazem HCl 125 mg/ Sodium (Chloride) 125 mls @ 5 mls/hr IV TITRATE JAMEY; Protocol Last Admin: 08/18/21 20:01 Dose: 5 mg/hr, 5 mls/hr Documented by: Sodium Chloride (Sodium Chloride 0.9% 10 Ml Syringe) 10 ml FLUSH ASDIRECTED PRN PRN Reason: Keep Vein Open Last Admin: 08/18/21 19:24 Dose: 10 ml Documented by: Admin: 08/18/21 19:23 Dose: 10 ml Documented by: YAMILA Labs: Laboratory Tests 08/18/21 08/18/21 08/18/21 Range/Units 19:10 19:10 19:10 WBC 6.9 (4.0-10.2) K/uL RBC 3.75 L (4.33-5.41) M/uL Hgb 11.8 L D (13.1-16.8) g/dL Hct 35.6 L (39.0-49.0) % MCV 94.9 (84.0-98.0) fL MCH 31.5 (28.2-33.3) pg MCHC 33.1 (31.7-36.0) g/dL RDW 13.2 (11.2-14.1) % Plt Count 130 L D (150-350) K/uL Neut % (Auto) 53.3 (45.0-80.0) % Lymph % (Auto) 22.6 (10.0-50.0) % [place] % (Auto) 17.4 H (2.0-14.0) % Eos % (Auto) 6.1 H (0.0-5.0) % Baso % (Auto) 0.6 (0.0-2.0) % Neut # (Auto) 3.70 (1.40-7.00) K/uL Lymph # (Auto) 1.57 (0.50-3.50) K/uL [place] # (Auto) 1.21 H (0.00-1.00) K/uL Eos # (Auto) 0.42 (0.00-0.50) K/uL Baso # (Auto) 0.04 (0.00-0.20) K/uL PT (9.5-12.0) SEC INR D-Dimer, Quantitative 2080 H (0-400) ng/mL Sodium 140 (136-145) mmol/L Potassium 4.6 (3.5-5.1) mmol/L Chloride 104 (98-107) mmol/L Carbon Dioxide 25.3 (21.0-32.0) mmol/L Anion Gap 10.7 (7-15) meq/L BUN 14 (7-18) mg/dL Creatinine 1.25 H (0.51-1.17) mg/dL Est Cr Clr Drug Dosing TNP Estimated GFR (MDRD) 55 mL/min Glucose 144 H (70-99) mg/dL Calcium 9.1 (8.5-10.1) mg/dL Magnesium 2.2 (1.8-2.4) mg/dL Total Bilirubin 0.4 (0.2-1.0) mg/dL AST 27 (15-37) U/L ALT 18 (12-78) U/L Alkaline Phosphatase 76 (46-116) IU/L Troponin I High Sens 151 H* (<=76) ng/L NT-Pro-B Natriuret Pep 2897 H (0-125) pg/mL Total Protein 7.7 (6.4-8.2) g/dL Albumin 3.6 (3.4-5.0) g/dL 08/18/21 Range/Units 19:10 WBC (4.0-10.2) K/uL RBC (4.33-5.41) M/uL Hgb (13.1-16.8) g/dL Hct (39.0-49.0) % MCV (84.0-98.0) fL MCH (28.2-33.3) pg MCHC (31.7-36.0) g/dL RDW (11.2-14.1) % Plt Count (150-350) K/uL Neut % (Auto) (45.0-80.0) % Lymph % (Auto) (10.0-50.0) % [place] % (Auto) (2.0-14.0) % Eos % (Auto) (0.0-5.0) % Baso % (Auto) (0.0-2.0) % Neut # (Auto) (1.40-7.00) K/uL Lymph # (Auto) (0.50-3.50) K/uL [place] # (Auto) (0.00-1.00) K/uL Eos # (Auto) (0.00-0.50) K/uL Baso # (Auto) (0.00-0.20) K/uL PT 11.4 (9.5-12.0) SEC INR 1.1 D-Dimer, Quantitative (0-400) ng/mL Sodium (136-145) mmol/L Potassium (3.5-5.1) mmol/L Chloride (98-107) mmol/L Carbon Dioxide (21.0-32.0) mmol/L Anion Gap (7-15) meq/L BUN (7-18) mg/dL Creatinine (0.51-1.17) mg/dL Est Cr Clr Drug Dosing Estimated GFR (MDRD) mL/min Glucose (70-99) mg/dL Calcium (8.5-10.1) mg/dL Magnesium (1.8-2.4) mg/dL Total Bilirubin (0.2-1.0) mg/dL AST (15-37) U/L ALT (12-78) U/L Alkaline Phosphatase (46-116) IU/L Troponin I High Sens (<=76) ng/L NT-Pro-B Natriuret Pep (0-125) pg/mL Total Protein (6.4-8.2) g/dL Albumin (3.4-5.0) g/dL Meds: Medications Generic Name Dose Route Start Last Admin Trade Name Freq PRN Reason Stop Dose Admin Sodium Chloride 1,000 mls @ 75 mls/hr 08/18/21 19:15 08/18/21 20:02 Normal Saline IV 75 mls/hr ASDIRECTED JAMEY Administration Sodium Chloride 1,000 mls @ 999 mls/hr 08/18/21 19:24 08/18/21 19:12 Normal Saline IV 08/18/21 20:24 999 mls/hr .BOLUS ONE Administration Diltiazem HCl 125 mg/ Sodium 125 mls @ 5 mls/hr 08/18/21 19:45 08/18/21 20:01 Chloride IV 5 mg/hr TITRATE JAMEY 5 mls/hr Administration Protocol 5 MG/HR Sodium Chloride 10 ml 08/18/21 19:14 08/18/21 19:24 Sodium Chloride 0.9% 10 Ml Syringe FLUSH 10 ml ASDIRECTED PRN Administration Keep Vein Open Discontinued Medications Generic Name Dose Route Start Last Admin Trade Name Freq PRN Reason Stop Dose Admin Adenosine 6 mg 08/18/21 19:14 08/18/21 19:10 Adenosine 6 Mg/2 Ml Sdv IVPUSH 08/18/21 19:15 6 mg NOW ONE Administration Diltiazem HCl 10 mg 08/18/21 19:14 08/18/21 19:14 Diltiazem 25 Mg/5 Ml Sdv IVPUSH 08/18/21 19:15 10 mg ONETIME ONE Administration Diltiazem HCl Confirm 08/18/21 19:13 08/18/21 19:19 Diltiazem 25 Mg/5 Ml Sdv Administered 08/18/21 19:14 Not Given Dose 25 mg .ROUTE .STK-MED ONE - Re-Assessments/Exams Free Text/Narrative Re-Assessment/Exam: at arrival patient was found to be in a fib with RVR, IV started one liter bolus, 6 mg of adenosine IVP resulted in quick slowing of rhythm but then back to 150. 10 mg of diltiazem slow push given. Patient continued to be hemodynamically stable. pressure did drop to 110/80. continued IV fluids. rate to 120 but persistent a fib. 08/18/21 19:56 call to [facility] cardiology, as he is 10 days post op.; elevated troponin, bnp d-dimer consistent with rapid rate. diltiazem drip has been ordered. awaiting initiation. ddimer elevated, 08/18/21 20:[address] Altman and accepts for transfer. Feels Ct not needed. labs due to rate and recent surgery No blood thinner in case procedure is needed Bed available. Discussed with hospitalist Dr. Covarrubias. Transfer to [facility] via EMS with diltiazem drip. Departure - Departure Time of Disposition: 20:14 Disposition: DC/Tfer to Acute Hospital 02 Reason for Transfer *Q: Other (aicd problems) Condition: Good Clinical Impression: Atrial fibrillation with rapid ventricular response, AICD discharge Referrals: Juana Moncada PA [Primary Care Provider] - Forms: ED Department Discharge, Interfacility Transfer EMTALA - My Orders Last 24 Hours: My Active Orders 08/18/21 19:14 Peripheral IV Care [RC] . DIRECTED Chest 1V Frontal [CR] Stat Sodium Chloride 0.9% [Saline Flush] 10 ml FLUSH ASDIRECTED PRN Peripheral IV Insertion Adult [OM.PC] Routine 08/18/21 19:15 EKG Documentation Completion [RC] ASDIRECTED Sodium Chloride 0.9% [Normal Saline] 1,000 ml IV ASDIRECTED 08/18/21 19:24 Sodium Chloride 0.9% [Normal Saline] 1,000 ml IV .BOLUS 08/18/21 19:45 PE Chest [Ang Chest] [CT] Stat Diltiazem 125 mg Sodium Chloride 0.9% [Normal Saline AdvBag] 100 ml IV TITRATE - Assessment/Plan Last 24 Hours: My Active Orders 08/18/21 19:14 Peripheral IV Care [RC] . DIRECTED Chest 1V Frontal [CR] Stat Sodium Chloride 0.9% [Saline Flush] 10 ml FLUSH ASDIRECTED PRN Peripheral IV Insertion Adult [OM.PC] Routine 08/18/21 19:15 EKG Documentation Completion [RC] ASDIRECTED Sodium Chloride 0.9% [Normal Saline] 1,000 ml IV ASDIRECTED 08/18/21 19:24 Sodium Chloride 0.9% [Normal Saline] 1,000 ml IV .BOLUS 08/18/21 19:45 PE Chest [Ang Chest] [CT] Stat Diltiazem 125 mg Sodium Chloride 0.9% [Normal Saline AdvBag] 100 ml IV TITRATE
== END 2021-08-18 20:50 ==
LOC: LL.ED 19:08
DX: T82.897A Other specified complication of cardiac prosthetic devices, implants and grafts, initial encounter (principal); I48.91 Unspecified atrial fibrillation; N40.0 Benign prostatic hyperplasia without lower urinary tract symptoms; J44.9 Chronic obstructive pulmonary disease, unspecified; E78.00 Pure hypercholesterolemia, unspecified; I25.10 Atherosclerotic heart disease of native coronary artery without angina pectoris; I10 Essential (primary) hypertension; M19.90 Unspecified osteoarthritis, unspecified site; I25.2 Old myocardial infarction; Z79.82 Long term (current) use of aspirin; Z79.899 Other long term (current) drug therapy; Z88.5 Allergy status to narcotic agent
CPT/HCPCS: 36415; 71045; 80053; 83735; 83880; 84484; 85025; 85379; 85610; 93005; 96365; 96375; 96376; 99285; J0153; J3490; J7030

== ENCOUNTER 2021-08-24 05:17 | Emergency (ER) | payer MEDICARE, OTHER ==
--- NOTE | 2021-08-24 05:45 | EDM.PDOC ---
ED HPI GENERAL MEDICAL PROBLEM - General Chief Complaint: Cardiovascular Problem Stated Complaint: defribilator firing Time Seen by Provider: 08/24/21 05:20 Source of Information: Reports: Patient, EMS History Limitations: Reports: No Limitations - History of Present Illness INITIAL COMMENTS - FREE TEXT/NARRATIVE: was at home sleeping poorly, couldn't sleep, got up to go to the bathroom and was sitting on the toilet when the AICD discharged once and then again about 30 seconds later. he was asymptomatic immediately prior to and between discharges. He remained asymptomatic after discharges but since it had discharged twice he contacted EMS for transport to the ED. He does have an appointment with EP today at 1000 for evaluation of his device as it discharged less than a week ago. While in the ED he is asymptomatic and having 3-8 second runs of vtach. no discharges noted. Onset: Today Onset Date: 08/24/21 Onset Time: 04:00 Duration: Minutes: - Related Data Allergies Allergy/AdvReac Type Severity Reaction Status Date / Time hydrocodone bitartrate Allergy Confusion Verified 08/24/21 05:18 [From Lortab] Home Meds: Home Meds Tamsulosin [Tamsulosin 24 Hr] 0.4 mg PO DAILY 10/06/13 [History] Leflunomide [Arava] 5 mg PO BEDTIME 12/01/13 [History] Multivitamin/Iron/Folic Acid [Multi-Day Plus Iron Tablet] 1 each PO QAM 12/01/13 [History] Rosuvastatin [Crestor] 10 mg PO BEDTIME 12/01/13 [History] Cholecalciferol (Vitamin D3) [Vitamin D3] 1,000 unit PO BEDTIME 01/04/15 [History] Ferrous Sulfate 325 mg PO QAM 01/04/15 [History] Gabapentin [Neurontin] 300 mg PO BID 10/07/19 [History] Aspirin [Halfprin] 81 mg PO DAILY 04/02/20 [History] Apixaban [Eliquis] 1 tab PO BID 08/24/21 [History] Metoprolol Succinate [Toprol XL] 1 tab PO DAILY 08/24/21 [History] Past Medical History HEENT History: Reports: Impaired Vision Other HEENT History: Patient wears glasses. 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 Cardiovascular History: Reports: Afib, Arrhythmia, Automatic Implantable Cardioverter Defibrillators, CAD, Cardiomyopathy, Heart Murmur, High Cholesterol, Hypertension, MT, PTCA, PVD, Stents Other Cardiovascular History: History of possible MT in 2016 with PTCA/stents as below. Mild cardiomyopathy and grade 1 diastolic dysfunction with decreased ejection fraction of 45-50% in 2013 by echocardiogram. Carotid occlusive disease requiring surgeries as below Respiratory History: Reports: COPD, Intubation, Previous, Pulmonary Fibrosis Gastrointestinal History: Reports: None Genitourinary History: Reports: BPH Musculoskeletal History: Reports: Arthritis, Fibromyalgia, Osteoarthritis, RA, Other (See Below) Other Musculoskeletal History: Lumbar stenosis Neurological History: Reports: None Psychiatric History: Reports: None Other Psychiatric History: alcohol and tobacco use as below Endocrine/Metabolic History: Reports: Osteopenia, Osteoporosis Hematologic History: Reports: Anemia, Iron Deficiency Immunologic History: Reports: None Oncologic (Cancer) History: Reports: None Dermatologic History: Reports: None - Infectious Disease History Infectious Disease History: Reports: None, Mumps - Past Surgical History Head Surgeries/Procedures: Reports: None HEENT Surgical History: Reports: Cataract Surgery, Oral Surgery, Other (See Below) Other HEENT Surgeries/Procedures: multiple teeth extractions with current complete upper dentures. Bilateral cataract surgery in 2016 Cardiovascular Surgical History: Reports: Carotid Endarterectomy, Coronary Artery Stent, Percutaneous Transluminal Angioplasty, Other (See Below) Other Cardiovascular Surgeries/Procedures: left-sided carotid endarterectomy 2 in 2011 and 2012. PTCA/stent 2 in August 2016. Respiratory Surgical History: Reports: None GI Surgical History: Reports: Hernia, Inguinal, Other (See Below) Other GI Surgeries/Procedures: right inguinal hernia repair in about 2007 Male Surgical History: Reports: Circumcision, Other (See Below) Other Male Surgeries/Procedures: circumcision as an Endocrine Surgical History: Reports: None Neurological Surgical History: Reports: Discectomy, Lumbar Spine, Other (See Below) Other Neurological Surgeries/Procedures: discectomy and L3-L4 in about 2005 Musculoskeletal Surgical History: Reports: Joint Replacement, Other (See Below) Other Musculoskeletal Surgeries/Procedures:: right total knee arthroplasty at age 66. Oncologic Surgical History: Reports: None Dermatological Surgical History: Reports: None - Past Imaging History Past Imaging History: Reports: Angiography (August 2016), Cardiac Echo (01/01/14 with ejection fraction of 45-50% and otherwise findings as above), MRI (last MRI of the lumbar spine on 08/19/17 with essentially yearly evaluations since November 22, 2010. MRI of the right hip on 08/12/17 with previous MRI of the hips bilaterally on 11/22/10) Social & Family History - Family History HEENT: Reports: None Cardiac: Reports: Bypass, CAD, MT, Other (See Below) Other Cardiac Family History: father with fatal MT at age 69. Brother with fatal MT at about age 50. Another brother with MT at about age 50 with possible CABG and fatal MT at about age 65. Respiratory: Reports: None GI: Reports: None : Reports: None OBGYN: Reports: None Musculoskeletal: Reports: None Neurological: Reports: None Psychiatric: Reports: None Endocrine/Metabolic: Reports: Diabetes, type II, Other (See Below) Other Endocrine/Metabolic Family History: Mother with AODM. 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) ED ROS GENERAL - Review of Systems Review Of Systems: See Below Constitutional: Reports: No Symptoms HEENT: Reports: No Symptoms Respiratory: Reports: No Symptoms Cardiovascular: Reports: No Symptoms Endocrine: Reports: No Symptoms GI/Abdominal: Reports: No Symptoms : Reports: No Symptoms Musculoskeletal: Reports: No Symptoms Skin: Reports: No Symptoms Neurological: Reports: No Symptoms Psychiatric: Reports: No Symptoms Hematologic/Lymphatic: Reports: No Symptoms Immunologic: Reports: No Symptoms ED EXAM, GENERAL - Physical Exam Exam: See Below Exam Limited By: No Limitations General Appearance: Alert, WD/WN, No Apparent Distress Eye Exam: Bilateral Eye: EOMI, Normal Inspection, PERRL Ears: Normal External Exam, Hearing Loss Nose: Normal Inspection, Normal Mucosa Throat/Mouth: Normal Inspection, Normal Lips, Normal Teeth, Normal Voice, No Airway Compromise Head: Atraumatic, Normocephalic Neck: Normal Inspection, Supple, Non-Tender, Full Range of Motion. No: Lymphadenopathy (R), Thyromegaly Cardiovascular: Normal Peripheral Pulses, No Edema, Systolic Murmur. No: JVD, Friction Rub GI/Abdominal: Soft, Non-Tender Extremities: Normal Inspection, Normal Range of Motion, Non-Tender Neurological: Alert, Oriented Psychiatric: Normal Affect, Normal Mood Skin Exam: Warm, Dry, Intact, No Rash Lymphatic: No Adenopathy #1 Interpretation EKG Date: 08/24/21 Rhythm: NSR [place]: LAD-Left [place] Deviation P-Wave: Present QRS: Wide ST-T: Normal QT: Normal Comparison: Other: (previous EKG: afib with RVR) EKG Interpretation Comments: PVCs present Course - Vital Signs Last Recorded V/S: Last Vital Signs Temp 97.8 F 08/24/21 05:39 Pulse 113 H 08/24/21 06:15 Resp 18 08/24/21 05:39 BP 128/60 08/24/21 06:15 Pulse Ox 96 08/24/21 05:39 - Orders/Labs/Meds Orders: Active Orders 24 hr Category Date Time Status Peripheral IV Care [RC] . DIRECTED Care 08/24/21 05:42 Active Up With Assistance [RC] ASDIRECTED Care 08/24/21 05:39 Active Vital Signs [RC] We@0800 Care 08/24/21 05:39 Active Nothing per Oral Now Diet [DIET] Diet 08/24/21 Breakfast Active DRUG SCREEN, URINE [URCHEM] Stat Lab 08/24/21 05:39 Ordered Lactated Ringers [Ringers, Lactated] 1,000 ml Med 08/24/21 06:30 Active IV ASDIRECTED Magnesium Sulfate/Water [Magnesium Sulfate in Water 2 Med 08/24/21 06:35 Active GM/50 ML] 2 gm Premix Bag 1 bag IV ONETIME Sodium Chloride 0.9% [Saline Flush] Med 08/24/21 05:39 Active 10 ml FLUSH ASDIRECTED PRN Peripheral IV Insertion Adult [OM.PC] Stat Oth 08/24/21 05:39 Ordered Resuscitation Status Routine Resus Stat 08/24/21 05:39 Ordered EKG 12 Lead [EK] Stat Ther 08/24/21 05:39 Ordered Medication Orders Lactated Ringer's (Ringers, Lactated) 1,000 mls @ 150 mls/hr IV ASDIRECTED JAMEY Last Admin: 08/24/21 06:31 Dose: 150 mls/hr Documented by: ANDREA Magnesium Sulfate 2 gm/ Premix 50 mls @ 25 mls/hr IV ONETIME ONE Stop: 08/24/21 08:34 Last Admin: 08/24/21 06:41 Dose: 25 mls/hr Documented by: ANDREA Sodium Chloride (Sodium Chloride 0.9% 10 Ml Syringe) 10 ml FLUSH ASDIRECTED PRN PRN Reason: Keep Vein Open Last Admin: 08/24/21 06:29 Dose: 10 ml Documented by: ANDREA Labs: Laboratory Tests 08/24/21 08/24/21 08/24/21 Range/Units 05:25 05:25 05:25 WBC 7.1 (4.0-10.2) K/uL RBC 3.41 L (4.33-5.41) M/uL Hgb 10.9 L (13.1-16.8) g/dL Hct 32.0 L (39.0-49.0) % MCV 93.8 (84.0-98.0) fL MCH 32.0 (28.2-33.3) pg MCHC 34.1 (31.7-36.0) g/dL RDW 12.8 (11.2-14.1) % Plt Count 143 L (150-350) K/uL Neut % (Auto) 55.7 (45.0-80.0) % Lymph % (Auto) 20.7 (10.0-50.0) % Casey % (Auto) 17.2 H (2.0-14.0) % Eos % (Auto) 6.0 H (0.0-5.0) % Baso % (Auto) 0.4 (0.0-2.0) % Neut # (Auto) 3.96 (1.40-7.00) K/uL Lymph # (Auto) 1.47 (0.50-3.50) K/uL Casey # (Auto) 1.22 H (0.00-1.00) K/uL Eos # (Auto) 0.43 (0.00-0.50) K/uL Baso # (Auto) 0.03 (0.00-0.20) K/uL D-Dimer, Quantitative 1630 H (0-400) ng/mL Sodium 138 (136-145) mmol/L Potassium 4.2 (3.5-5.1) mmol/L Chloride 105 (98-107) mmol/L Carbon Dioxide 21.3 (21.0-32.0) mmol/L Anion Gap 11.7 (7-15) meq/L BUN 17 (7-18) mg/dL Creatinine 1.10 (0.51-1.17) mg/dL Est Cr Clr Drug Dosing TNP Estimated GFR (MDRD) > 60 mL/min Glucose 115 H (70-99) mg/dL Calcium 8.5 (8.5-10.1) mg/dL Magnesium 1.7 L (1.8-2.4) mg/dL Total Bilirubin 0.4 (0.2-1.0) mg/dL AST 23 (15-37) U/L ALT 18 (12-78) U/L Alkaline Phosphatase 75 (46-116) IU/L Troponin I High Sens 62 (<=76) ng/L NT-Pro-B Natriuret Pep 3596 H (0-125) pg/mL Total Protein 6.8 (6.4-8.2) g/dL Albumin 3.0 L (3.4-5.0) g/dL Ethyl Alcohol 0.000 (0.000-0.080) g/dL Meds: Medications Generic Name Dose Route Start Last Admin Trade Name Freq PRN Reason Stop Dose Admin Lactated Ringer's 1,000 mls @ 150 mls/hr 08/24/21 06:30 08/24/21 06:31 Ringers, Lactated IV 150 mls/hr ASDIRECTED JAMEY Administration Magnesium Sulfate 2 gm/ Premix 50 mls @ 25 mls/hr 08/24/21 06:35 08/24/21 06:41 IV 08/24/21 08:34 25 mls/hr ONETIME ONE Administration Sodium Chloride 10 ml 08/24/21 05:39 08/24/21 06:29 Sodium Chloride 0.9% 10 Ml Syringe FLUSH 10 ml ASDIRECTED PRN Administration Keep Vein Open Discontinued Medications Generic Name Dose Route Start Last Admin Trade Name Freq PRN Reason Stop Dose Admin Diltiazem HCl 20 mg 08/24/21 06:18 08/24/21 06:23 Diltiazem 25 Mg/5 Ml Sdv IVPUSH 08/24/21 06:19 20 mg ONETIME ONE Administration Metoprolol Succinate 25 mg 08/24/21 06:00 08/24/21 06:30 Metoprolol Succinate 25 Mg Tab.Er PO Not Given DAILY JAMEY Metoprolol Succinate 25 mg 08/24/21 06:05 08/24/21 06:15 Metoprolol Succinate 25 Mg Tab.Er PO 08/24/21 06:06 25 mg ONETIME ONE Administration - Re-Assessments/Exams Free Text/Narrative Re-Assessment/Exam: was at home sleeping poorly, couldn't sleep, got up to go to the bathroom and was sitting on the toilet when the AICD discharged once and then again about 30 seconds later. he was asymptomatic immediately prior to and between discharges. He remained asymptomatic after discharges but since it had discharged twice he contacted EMS for transport to the ED. He does have an appointment with EP today at 1000 for evaluation of his device as it discharged less than a week ago. While in the ED he is asymptomatic and having 3-8 second runs of vtach. no discharges noted. Labs pending. 08/24/21 05:53 Magnesium low at 1.7 with 2g IV ordered once. currently hemodynamically stable with asymptomatic vtach episodes lasting up to 3 minutes. Cardizem push 20mg once and LR at 150mL/hr. [facility] contacted for transfer. continuing to monitor on telemetry 08/24/21 07:[address] Rey at [facility]. Transfer accepted. 08/24/21 07:49 Departure - Departure Time of Disposition: 07:51 Disposition: DC/Tfer to Acute Hospital 02 Reason for Transfer *Q: Primary PCI Indicated Condition: Fair Clinical Impression: SVT (supraventricular tachycardia), ICD (implantable cardioverter- defibrillator) discharge Referrals: Mikala Butterfield PA [Primary Care Provider] - Forms: ED Department Discharge Sepsis Event Note (ED) - Focused Exam Vital Signs: Vital Signs Temp Pulse Pulse Resp BP BP Pulse Ox 08/24/21 06:15 113 H 128/60 08/24/21 05:39 97.8 F 86 18 130/85 96 ED Communication - ED Communication Date/Time Date: 08/24/21 Time Called: 06:50 (called [facility] One call for transfer. awaiting call back) - Discussed Case With (1) Discussed Case With (1): Admitting Provider - Problem List Review Problem List Initiated/Reviewed/Updated: Yes - My Orders Last 24 Hours: My Active Orders 08/24/21 05:39 Up With Assistance [RC] ASDIRECTED Vital Signs [RC] We@0800 DRUG SCREEN, URINE [URCHEM] Stat Sodium Chloride 0.9% [Saline Flush] 10 ml FLUSH ASDIRECTED PRN Peripheral IV Insertion Adult [OM.PC] Stat Resuscitation Status Routine EKG 12 Lead [EK] Stat 08/24/21 05:42 Peripheral IV Care [RC] . DIRECTED 08/24/21 06:30 Lactated Ringers [Ringers, Lactated] 1,000 ml IV ASDIRECTED 08/24/21 06:35 Magnesium Sulfate/Water [Magnesium Sulfate in Water 2 GM/50 ML] 2 gm Premix Bag 1 bag IV ONETIME 08/24/21 Breakfast Nothing per Oral Now Diet [DIET] - Assessment/Plan Admission H&P: Please use this note as an admission H&P Last 24 Hours: My Active Orders 08/24/21 05:39 Up With Assistance [RC] ASDIRECTED Vital Signs [RC] We@0800 DRUG SCREEN, URINE [URCHEM] Stat Sodium Chloride 0.9% [Saline Flush] 10 ml FLUSH ASDIRECTED PRN Peripheral IV Insertion Adult [OM.PC] Stat Resuscitation Status Routine EKG 12 Lead [EK] Stat 08/24/21 05:42 Peripheral IV Care [RC] . DIRECTED 08/24/21 06:30 Lactated Ringers [Ringers, Lactated] 1,000 ml IV ASDIRECTED 08/24/21 06:35 Magnesium Sulfate/Water [Magnesium Sulfate in Water 2 GM/50 ML] 2 gm Premix Bag 1 bag IV ONETIME 08/24/21 Breakfast Nothing per Oral Now Diet [DIET] Assessment:: see below Plan: AICD discharge asymptomatic non sustained vtach - Pt is about 2 weeks post AICD implant. has appointment with EP at [facility] today. - Tele: initially 3-8 second runs of vtach, pt asymptomatic. eventual episodes lasting up to 4 minutes - Labs including: BNP, UDS, CMP, CBC, Mg Plan: - replace K and Mg for goal of >4 and >2 respectively - cardizem push 20mg IV once - home dose toprol XL 25mg given x1 - IV LR @ 150mL/hr - telemetry continued - initiate transfer to [facility]. accepted by Dr. Rey Hypomagnesemia: - Mg 1.7 replaced with IV Mg 2 g once Chronic conditions: continue current home meds as ordered - unspecified RA - iron deficiency anemia - Essential HTN - Mixed HLD - CAD, [place] heart, [place] artery, no angina - Hx of MARICEL placement -
[2021-08-24 06:15] LABS: ANION GAP 11.7 meq/L (7-15); CHLORIDE,CL 105 mmol/L (98-107); SODIUM,NA 138 mmol/L (136-145)
[2021-08-24] MEDS: Metoprolol Succinate 25 MG Tab.ER PO ONE (06:15)
[2021-08-24] MEDS: Diltiazem 25 MG/5 ML SDV IVPUSH ONE (06:23)
[2021-08-24] MEDS: Sodium Chloride 0.9% 10 ML Syringe FLUSH PRN (06:29)
[2021-08-24] MEDS: Metoprolol Succinate 25 MG Tab.ER PO SCH (06:30)
[2021-08-24] MEDS: Lactated Ringers 1,000 ML IV SCH (06:31)
[2021-08-24] MEDS: Magnesium Sulfate/Water 2 GM in Premix Bag 1 BAG IV ONE (06:41)
[2021-08-24 17:11] VITALS: PULSE 70
[2021-08-24 17:13] VITALS: BP 117/53
== END 2021-08-24 08:50 ==
LOC: LL.ED 05:17
DX: T82.897A Other specified complication of cardiac prosthetic devices, implants and grafts, initial encounter (principal); I47.1 Supraventricular tachycardia; E78.00 Pure hypercholesterolemia, unspecified; I11.9 Hypertensive heart disease without heart failure; I25.2 Old myocardial infarction; I25.10 Atherosclerotic heart disease of native coronary artery without angina pectoris; J44.9 Chronic obstructive pulmonary disease, unspecified; N40.0 Benign prostatic hyperplasia without lower urinary tract symptoms; Z88.5 Allergy status to narcotic agent; Z95.810 Presence of automatic (implantable) cardiac defibrillator
CPT/HCPCS: 36415; 80053; 80307; 83735; 83880; 84484; 85025; 85379; 93005; 96365; 96366; 96375; 99285; A9270; J3475; J3490; J7120

== ENCOUNTER 2021-12-07 15:08 | Inpatient (IN) | payer MEDICARE, OTHER ==
[2021-12-07] MEDS ORDERED: Sodium Chloride 0.9% 1,000 ML IV SCH ×2 (15:15→16:30)
[2021-12-07] MEDS: Sodium Chloride 0.9% 10 ML Syringe FLUSH PRN (15:36)
[2021-12-07 16:05] LABS: O2 DELIVERY DEVICE NASAL CANNULA; PCO2 VENOUS 38 mmHG (41-51); PH,VENOUS 7.42 (7.31-7.41)
[2021-12-07 16:06] LABS: BICARBONATE,VENOUS 24 mmol/L (23-28); O2 SATURATION VENOUS 59 %; PO2 VENOUS 30 mmHG
[2021-12-07 16:07] LABS: CHLORIDE,CL 99 mmol/L (98-107); SODIUM,NA 134 mmol/L (136-145)
[2021-12-07 16:09] LABS: ANION GAP 17.4 meq/L (7-15)
[2021-12-07] MEDS ORDERED: fentaNYL 50 MCG/ML SDV IVPUSH ONE (16:29)
[2021-12-07] MEDS ORDERED: Pantoprazole 40 MG Vial IVPUSH ONE (17:12)
[2021-12-07] MEDS ORDERED: Nitroglycerin 2% Oint 1 GM UD Packet TOP ONE (17:16)
[2021-12-07] MEDS: cefTRIAXone 2 GM Vial IVPUSH SCH (17:39)
[2021-12-07] MEDS ORDERED: Sodium Chloride 0.9% 250 ML IV SCH (18:15)
[2021-12-07] MEDS: fentaNYL 50 MCG/ML SDV IVPUSH PRN ×2 (20:06→23:36)
[2021-12-07] MEDS ORDERED: Albuterol 0.083% 2.5 MG/3 ML Neb Soln NEB PRN (20:33)
[2021-12-07] MEDS ORDERED: Bisacodyl 5 MG Tab PO PRN (20:33)
[2021-12-07] MEDS ORDERED: LORazepam 2 MG/ML SDV IV PRN (20:33)
[2021-12-07] MEDS: oxyCODONE 5 MG Tab PO PRN (20:53)
[2021-12-08] MEDS: fentaNYL 50 MCG/ML SDV IVPUSH PRN ×3 (04:07→15:39)
[2021-12-08 08:00] LABS: ANION GAP 7.6 meq/L (7-15)
[2021-12-08] MEDS: oxyCODONE 5 MG Tab PO PRN (08:12)
[2021-12-08] MEDS: Ferrous Sulfate 325 MG Tab PO SCH (08:12)
[2021-12-08] MEDS: Tamsulosin 0.4 MG Cap.ER PO SCH (08:14)
[2021-12-08] MEDS: Albuterol/Ipratropium 3.0-0.5 MG/3 ML Neb Soln NEB SCH ×2 (08:16→20:44)
[2021-12-08] MEDS: Sodium Chloride 0.9% 10 ML Syringe FLUSH PRN ×5 (08:20→18:16)
[2021-12-08] MEDS: Pantoprazole 40 MG Vial IV SCH ×2 (08:20→20:44)
[2021-12-08] MEDS: Gabapentin 300 MG Cap PO SCH ×2 (08:21→18:15)
[2021-12-08] MEDS: Furosemide 40 MG/4 ML VIAL IVPUSH SCH (09:02)
[2021-12-08] MEDS: cefTRIAXone 2 GM Vial IVPUSH SCH (18:16)
[2021-12-09] MEDS: oxyCODONE 5 MG Tab PO PRN ×2 (00:29→08:34)
[2021-12-09] MEDS: Acetaminophen 325 MG Tab PO PRN (05:55)
[2021-12-09] MEDS: Furosemide 40 MG/4 ML VIAL IVPUSH SCH (07:59)
[2021-12-09] MEDS: Albuterol/Ipratropium 3.0-0.5 MG/3 ML Neb Soln NEB SCH ×2 (07:59→21:07)
[2021-12-09] MEDS: Pantoprazole 40 MG Vial IV SCH ×2 (07:59→21:07)
[2021-12-09] MEDS: Sodium Chloride 0.9% 10 ML Syringe FLUSH PRN ×4 (07:59→16:42)
[2021-12-09] MEDS: Ferrous Sulfate 325 MG Tab PO SCH (08:00)
[2021-12-09] MEDS: Tamsulosin 0.4 MG Cap.ER PO SCH (08:00)
[2021-12-09] MEDS: Gabapentin 300 MG Cap PO SCH ×2 (08:01→17:23)
[2021-12-09 08:27] LABS: ANION GAP 9.4 meq/L (7-15)
[2021-12-09] MEDS: fentaNYL 50 MCG/ML SDV IVPUSH PRN ×3 (12:25→16:41)
[2021-12-09] MEDS: cefTRIAXone 2 GM Vial IVPUSH SCH (16:42)
[2021-12-09] MEDS ORDERED: Polyethylene Glycol 3350 Powder 17 GM Packet PO PRN (20:19)
[2021-12-09] MEDS: Morphine 2 MG/ML SYRINGE IV PRN ×2 (20:42→22:14)
[2021-12-09] MEDS: Ondansetron 4 MG/2 ML SDV IVPUSH PRN (20:42)
[2021-12-10] MEDS: Morphine 2 MG/ML SYRINGE IV PRN ×3 (07:50→12:17)
[2021-12-10] MEDS: Sodium Chloride 0.9% 10 ML Syringe FLUSH PRN ×5 (07:54→17:23)
[2021-12-10] MEDS: Tamsulosin 0.4 MG Cap.ER PO SCH (07:54)
[2021-12-10] MEDS: Furosemide 40 MG Tab PO SCH (07:54)
[2021-12-10] MEDS: Baclofen 10 MG Tab PO PRN (08:24)
[2021-12-10] MEDS: Acetaminophen 325 MG Tab PO PRN ×2 (12:15→19:32)
[2021-12-10 12:28] VITALS: BP 125/64; PULSE 65
[2021-12-10] MEDS: Morphine 4 MG/ML Syringe IV PRN ×4 (13:31→19:32)
[2021-12-10] MEDS: Ondansetron 4 MG/2 ML SDV IVPUSH PRN (17:23)
[2021-12-10] MEDS: LORazepam 2 MG/ML SDV IV PRN (19:31)
[2021-12-11] MEDS: Acetaminophen 325 MG Tab PO PRN ×2 (05:51→20:24)
[2021-12-11] MEDS: Furosemide 40 MG Tab PO SCH (07:59)
[2021-12-11] MEDS: Morphine 4 MG/ML Syringe IV PRN ×4 (11:15→20:24)
[2021-12-11] MEDS: Sodium Chloride 0.9% 10 ML Syringe FLUSH PRN ×3 (11:15→18:32)
[2021-12-11] MEDS: Ondansetron 4 MG/2 ML SDV IVPUSH PRN ×2 (14:05→18:32)
[2021-12-12] MEDS: LORazepam 2 MG/ML SDV IV PRN (00:32)
[2021-12-12] MEDS: Sodium Chloride 0.9% 10 ML Syringe FLUSH PRN ×4 (00:32→05:26)
[2021-12-12] MEDS: Ondansetron 4 MG/2 ML SDV IVPUSH PRN ×3 (00:32→11:15)
[2021-12-12] MEDS: Morphine 4 MG/ML Syringe IV PRN ×4 (00:32→11:15)
[2021-12-12] MEDS: Furosemide 40 MG Tab PO SCH (09:02)
[2021-12-12] MEDS: Baclofen 10 MG Tab PO PRN (09:03)
== END 2021-12-12 14:08 | disposition swing bed (61) | DRG 871 ==
LOC: LL.ED 15:08 → LL.MS 18:10
PROVIDERS: ADMIT Physician Assistant; ATTEND Physician Assistant
PROC: 3E03329 Introduction of Other Anti-infective into Peripheral Vein, Percutaneous Approach (ICD-10-PCS; 2021-12-07)
PROC: 30233N1 Transfusion of Nonautologous Red Blood Cells into Peripheral Vein, Percutaneous Approach (ICD-10-PCS; principal; 2021-12-08)
DX: A41.59 Other Gram-negative sepsis (principal); A41.9 Sepsis, unspecified organism; G93.41 Metabolic encephalopathy; E43 Unspecified severe protein-calorie malnutrition; J96.01 Acute respiratory failure with hypoxia; J18.9 Pneumonia, unspecified organism; R77.8 Other specified abnormalities of plasma proteins; D64.9 Anemia, unspecified; N17.9 Acute kidney failure, unspecified; N18.4 Chronic kidney disease, stage 4 (severe); I48.91 Unspecified atrial fibrillation; N13.8 Other obstructive and reflux uropathy; I13.0 Hypertensive heart and chronic kidney disease with heart failure and stage 1 through stage 4 chronic kidney disease, or unspecified chronic kidney disease; I42.9 Cardiomyopathy, unspecified; K92.2 Gastrointestinal hemorrhage, unspecified; I73.9 Peripheral vascular disease, unspecified; N39.0 Urinary tract infection, site not specified; D63.1 Anemia in chronic kidney disease; J84.10 Pulmonary fibrosis, unspecified; N40.0 Benign prostatic hyperplasia without lower urinary tract symptoms; Z20.822 Contact with and (suspected) exposure to COVID-19; E87.5 Hyperkalemia; Z66 Do not resuscitate; M48.061 Spinal stenosis, lumbar region without neurogenic claudication; Z51.5 Encounter for palliative care; N40.1 Benign prostatic hyperplasia with lower urinary tract symptoms; E11.21 Type 2 diabetes mellitus with diabetic nephropathy; E11.649 Type 2 diabetes mellitus with hypoglycemia without coma; E78.2 Mixed hyperlipidemia; I48.0 Paroxysmal atrial fibrillation; I50.9 Heart failure, unspecified; E11.22 Type 2 diabetes mellitus with diabetic chronic kidney disease; H54.7 Unspecified visual loss; E78.00 Pure hypercholesterolemia, unspecified; I25.10 Atherosclerotic heart disease of native coronary artery without angina pectoris; E11.51 Type 2 diabetes mellitus with diabetic peripheral angiopathy without gangrene; M19.90 Unspecified osteoarthritis, unspecified site; M06.9 Rheumatoid arthritis, unspecified; Z96.651 Presence of right artificial knee joint; J43.1 Panlobular emphysema; M54.50 Low back pain, unspecified; H91.13 Presbycusis, bilateral; M79.7 Fibromyalgia; M81.0 Age-related osteoporosis without current pathological fracture; D50.9 Iron deficiency anemia, unspecified; Z95.810 Presence of automatic (implantable) cardiac defibrillator; I25.2 Old myocardial infarction; Z68.20 Body mass index [BMI] 20.0-20.9, adult; Z87.891 Personal history of nicotine dependence; Z79.82 Long term (current) use of aspirin; Z79.899 Other long term (current) drug therapy; Z95.5 Presence of coronary angioplasty implant and graft; Z88.8 Allergy status to other drugs, medicaments and biological substances; Z79.01 Long term (current) use of anticoagulants
CPT/HCPCS: 36415; 36430; 71045; 74176; 80053; 82272; 82803; 83605; 83690; 83735; 83880; 84443; 84484; 85025; 85610; 86140; 86850; 86900; 86901; 86920; 86922; 87040 ×2; 96374; 96375; 99285; A9270; C9113; J0696; J3010; J7030 ×2; U0002; 51702; 80048; 81003; 85014; 85018; 93010; 94640; 99223; 99232; 99233; 99238; J1940; J2060; J2270; J2405; J7620-GY; P9016

== ENCOUNTER 2021-12-12 11:00 | Inpatient (IN) | payer SELFPAY ==
[2021-12-12] MEDS ORDERED: Baclofen 10 MG Tab PO PRN (12:34)
[2021-12-12] MEDS: Ondansetron 4 MG Tab.DIS PO PRN (14:32)
[2021-12-12] MEDS: Morphine Oral Concentrate 20 MG/ML 30 ML Bottle PO PRN (14:34)
[2021-12-12] MEDS: Morphine Oral Concentrate 20 MG/ML 30 ML Bottle PO SCH ×2 (16:44→21:16)
[2021-12-13] MEDS: Morphine Oral Concentrate 20 MG/ML 30 ML Bottle PO SCH ×6 (01:12→22:21)
[2021-12-13] MEDS: Furosemide 40 MG Tab PO SCH (08:22)
[2021-12-13] MEDS: Ondansetron 4 MG Tab.DIS PO PRN ×2 (12:04→17:36)
[2021-12-13] MEDS: Acetaminophen 325 MG Tab PO PRN ×2 (12:04→16:32)
[2021-12-13] MEDS: Morphine Oral Concentrate 20 MG/ML 30 ML Bottle PO PRN ×2 (13:05→17:37)
[2021-12-14] MEDS: Morphine Oral Concentrate 20 MG/ML 30 ML Bottle PO SCH ×6 (00:14→20:20)
[2021-12-14] MEDS: Acetaminophen 325 MG Tab PO PRN ×2 (07:57→16:17)
[2021-12-14] MEDS: Furosemide 40 MG Tab PO SCH (07:58)
[2021-12-15] MEDS: Acetaminophen 325 MG Tab PO PRN (00:57)
[2021-12-15] MEDS: Morphine Oral Concentrate 20 MG/ML 30 ML Bottle PO SCH ×6 (00:57→19:20)
[2021-12-15] MEDS: LORazepam Conc Solution 2 MG/ML 30 ML Bottle BUCCAL PRN (03:43)
[2021-12-15] MEDS: Morphine Oral Concentrate 20 MG/ML 30 ML Bottle PO PRN (06:09)
[2021-12-15] MEDS: Furosemide 40 MG Tab PO SCH (08:03)
[2021-12-15] MEDS: Ondansetron 4 MG Tab.DIS PO PRN (16:58)
[2021-12-16] MEDS: Morphine Oral Concentrate 20 MG/ML 30 ML Bottle PO SCH ×6 (01:47→19:48)
[2021-12-16] MEDS: Furosemide 40 MG Tab PO SCH (08:46)
[2021-12-16] MEDS: Morphine Oral Concentrate 20 MG/ML 30 ML Bottle PO PRN (21:18)
[2021-12-16] MEDS: LORazepam Conc Solution 2 MG/ML 30 ML Bottle BUCCAL PRN (21:19)
[2021-12-17] MEDS: Morphine Oral Concentrate 20 MG/ML 30 ML Bottle PO SCH ×6 (01:10→19:03)
[2021-12-17] MEDS: Furosemide 40 MG Tab PO SCH (08:20)
[2021-12-17] MEDS: LORazepam Conc Solution 2 MG/ML 30 ML Bottle BUCCAL PRN (20:39)
[2021-12-18] MEDS: Morphine Oral Concentrate 20 MG/ML 30 ML Bottle PO PRN ×2 (02:37→14:44)
[2021-12-18] MEDS: Morphine Oral Concentrate 20 MG/ML 30 ML Bottle PO SCH ×6 (02:38→19:38)
[2021-12-18] MEDS: Furosemide 40 MG Tab PO SCH (07:24)
[2021-12-18] MEDS: LORazepam Conc Solution 2 MG/ML 30 ML Bottle BUCCAL PRN (22:53)
[2021-12-19] MEDS: Morphine Oral Concentrate 20 MG/ML 30 ML Bottle PO SCH ×6 (00:30→19:39)
[2021-12-19] MEDS: Morphine Oral Concentrate 20 MG/ML 30 ML Bottle PO PRN ×3 (05:21→22:20)
[2021-12-19] MEDS: Furosemide 40 MG Tab PO SCH (08:18)
[2021-12-20] MEDS: Morphine Oral Concentrate 20 MG/ML 30 ML Bottle PO SCH ×7 (00:35→23:51)
[2021-12-20] MEDS: LORazepam Conc Solution 2 MG/ML 30 ML Bottle BUCCAL PRN (07:33)
[2021-12-20] MEDS: Furosemide 40 MG Tab PO SCH (10:15)
[2021-12-20] MEDS: Polyethylene Glycol 3350 Powder 17 GM Packet PO PRN (16:24)
[2021-12-21] MEDS: Morphine Oral Concentrate 20 MG/ML 30 ML Bottle PO SCH ×5 (03:55→21:22)
[2021-12-21] MEDS: LORazepam Conc Solution 2 MG/ML 30 ML Bottle BUCCAL PRN (21:22)
[2021-12-22] MEDS: Morphine Oral Concentrate 20 MG/ML 30 ML Bottle PO SCH ×6 (03:01→20:16)
[2021-12-22] MEDS: LORazepam Conc Solution 2 MG/ML 30 ML Bottle BUCCAL PRN (04:37)
[2021-12-22] MEDS: Polyethylene Glycol 3350 Powder 17 GM Packet PO PRN (08:01)
[2021-12-23] MEDS: Morphine Oral Concentrate 20 MG/ML 30 ML Bottle PO SCH ×6 (00:03→19:53)
[2021-12-23] MEDS: LORazepam Conc Solution 2 MG/ML 30 ML Bottle BUCCAL PRN ×2 (00:05→07:14)
[2021-12-23] MEDS: Morphine Oral Concentrate 20 MG/ML 30 ML Bottle PO PRN ×2 (00:58→05:15)
[2021-12-24] MEDS: Morphine Oral Concentrate 20 MG/ML 30 ML Bottle PO SCH ×7 (00:45→23:12)
[2021-12-24] MEDS: Morphine Oral Concentrate 20 MG/ML 30 ML Bottle PO PRN (13:54)
[2021-12-24] MEDS: LORazepam Conc Solution 2 MG/ML 30 ML Bottle BUCCAL PRN (13:57)
[2021-12-25] MEDS: Morphine Oral Concentrate 20 MG/ML 30 ML Bottle PO SCH ×5 (03:27→19:26)
[2021-12-25] MEDS: LORazepam Conc Solution 2 MG/ML 30 ML Bottle BUCCAL PRN ×2 (03:28→19:25)
[2021-12-25] MEDS: Morphine Oral Concentrate 20 MG/ML 30 ML Bottle PO PRN ×2 (09:26→18:10)
[2021-12-25] MEDS: Ondansetron 4 MG Tab.DIS PO PRN (19:26)
[2021-12-26] MEDS: Morphine Oral Concentrate 20 MG/ML 30 ML Bottle PO SCH ×6 (01:03→19:30)
[2021-12-27] MEDS: Morphine Oral Concentrate 20 MG/ML 30 ML Bottle PO SCH ×6 (00:41→21:06)
[2021-12-27] MEDS: LORazepam Conc Solution 2 MG/ML 30 ML Bottle BUCCAL PRN (04:34)
[2021-12-27] MEDS: Ondansetron 4 MG Tab.DIS PO PRN (04:34)
[2021-12-27] MEDS ORDERED: Ondansetron 4 MG Tab.DIS PO SCH ×2 (07:45→09:00)
[2021-12-27] MEDS: Haloperidol Lactate 2 MG/ML Oral Soln 15 ML Bottle SL SCH ×2 (14:46→21:06)
[2021-12-27] MEDS: Ondansetron 4 MG Tab.DIS PO SCH (18:05)
[2021-12-27] MEDS ORDERED: Haloperidol Lactate 2 MG/ML Oral Soln 15 ML Bottle SL SCH (20:00)
[2021-12-28] MEDS: Ondansetron 4 MG Tab.DIS PO SCH ×4 (01:04→23:41)
[2021-12-28] MEDS: Morphine Oral Concentrate 20 MG/ML 30 ML Bottle PO SCH ×7 (01:04→23:41)
[2021-12-28] MEDS: Haloperidol Lactate 2 MG/ML Oral Soln 15 ML Bottle SL SCH ×3 (05:59→21:20)
[2021-12-28 10:51] VITALS: PULSE 83
[2021-12-29] MEDS: Morphine Oral Concentrate 20 MG/ML 30 ML Bottle PO SCH ×5 (04:27→20:31)
[2021-12-29] MEDS: Haloperidol Lactate 2 MG/ML Oral Soln 15 ML Bottle SL SCH ×4 (06:10→21:37)
[2021-12-29] MEDS: Ondansetron 4 MG Tab.DIS PO SCH ×2 (07:34→16:44)
[2021-12-29] MEDS: LORazepam Conc Solution 2 MG/ML 30 ML Bottle BUCCAL PRN (17:49)
[2021-12-29] MEDS: Morphine Oral Concentrate 20 MG/ML 30 ML Bottle PO PRN ×2 (17:50→21:43)
[2021-12-30] MEDS: Morphine Oral Concentrate 20 MG/ML 30 ML Bottle PO SCH ×3 (00:38→07:24)
[2021-12-30] MEDS: Ondansetron 4 MG Tab.DIS PO SCH ×2 (00:39→07:29)
[2021-12-30] MEDS: Haloperidol Lactate 2 MG/ML Oral Soln 15 ML Bottle SL SCH (05:55)
[2021-12-30] MEDS: LORazepam Conc Solution 2 MG/ML 30 ML Bottle BUCCAL PRN (07:26)
== END 2021-12-30 13:25 | disposition expired | DRG 951 ==
LOC: UNDOADMIN 11:00 → LL.MS 11:00
PROVIDERS: ADMIT Hospitalist; ATTEND Hospitalist
DX: Z51.5 Encounter for palliative care (principal); J18.9 Pneumonia, unspecified organism; E46 Unspecified protein-calorie malnutrition; K92.2 Gastrointestinal hemorrhage, unspecified; G89.29 Other chronic pain; J98.4 Other disorders of lung; M54.9 Dorsalgia, unspecified; I50.9 Heart failure, unspecified; I25.10 Atherosclerotic heart disease of native coronary artery without angina pectoris; D64.9 Anemia, unspecified; I95.9 Hypotension, unspecified; I48.0 Paroxysmal atrial fibrillation; Z66 Do not resuscitate; Z79.899 Other long term (current) drug therapy; Z68.20 Body mass index [BMI] 20.0-20.9, adult
CPT/HCPCS: A9270-GY